=== PATIENT | female | born 1955 | race African-American/Black ===

== ENCOUNTER 2016-11-16 05:54 | Emergency (ER) | payer OTHER ==
[2016-11-16] MEDS ORDERED: MECLIZINE 12.5 MG TABLET PO STA (06:43)
[2016-11-16] MEDS ORDERED: MECLIZINE 12.5 MG TABLET PO ONE (06:51)
--- NOTE | 2016-11-16 08:03 | ED Physician Documentation ---
History of Present Illness - Stated complaint Stated Complaint: DIZZINESS - Chief complaint Chief Complaint: General - History obtained from History obtained from: Patient, Family - History of Present Illness Timing: Yesterday - Additonal information Additional information: 60 y/o female visiting from [place] arrived 4 days ago and yesterday she developed acute dizziness in the morning and this was worse again last night. She has some improvement this morning with the use of antivert given in the ED. She has had this previously about a year ago and medication helped then she had no hearing loss and she has had brief episodes since then and she had some improvement in this with maneuvers done in the ENT office. She has not had vomiting or propelling vertigo or hearing loss with this episode. She did have some nasal congestion and took some kajal and sudafed for this and this seems better. Review of Systems Constitutional: denies: Fever Eyes: denies: Decreased vision Ears: denies: Ear pain Nose: reports: Congestion. 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 - Present Medications Home Medications: Ambulatory Orders Medication Instructions Recorded Confirmed DULoxetine [Cymbalta] 20 mg PO TID 11/16/16 11/16/16 Estradiol [Estradiol Transdermal 1 pt 11/16/16 Patch] Hydroxychloroquine [Plaquenil] 200 mg PO DAILY 11/16/16 11/16/16 Meclizine HCl 25 mg PO Q6HR PRN #20 tab.chew 11/16/16 Omeprazole [PriLOSEC] 20 mg PO DAILY 11/16/16 11/16/16 Prednisone 2.5 mg PO BID 11/16/16 11/16/16 Tramadol HCl/Acetaminophen 1 tab PO DAILY PRN 11/16/16 11/16/16 [Tramadol-Acetaminophn 37.5-325] - Allergies Allergies/Adverse Reactions: Allergies Allergy/AdvReac Type Severity Reaction Status Date / Time codeine Allergy Hives Verified 11/16/16 06:07 - Social History Does the pt smoke?: No Smoking Status: Never smoker Does the pt drink ETOH?: No Does the pt have substance abuse?: No - Immunizations Immunizations are current?: Yes - POLST Patient has POLST: No PD ED PE NORMAL - Vitals Vital signs reviewed: Yes (hypertensive mild ) - General General: Alert and oriented X 3, No acute distress, Well developed/nourished - HEENT HEENT: Atraumatic, PERRL, EOMI, Ears normal, Moist mucous membranes, Pharynx benign, Dentition benign, Other (minimal nystagmus after the administration of meclizine ) - Neck Neck: Supple, no meningeal sign, No bony TTP - Cardiac Cardiac: RRR, No murmur - Respiratory Respiratory: No respiratory distress, Clear bilaterally - Abdomen Abdomen: Soft, Non tender - Derm Derm: Normal color, Warm and dry, No rash - Extremities Extremities: No deformity, No edema - Neuro Neuro: Alert and oriented X 3, 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 She has a history of some recent head tilting in an art class she is taking and I have included instructions on maneuvers for the otoliths. Departure - Departure Disposition: 01 Home, Self Care Clinical Impression: Labyrinthitis Qualifiers: Laterality: bilateral Qualified Code(s): H83.03 - Labyrinthitis, bilateral Condition: Stable Instructions: ED Labyrinthitis Follow-Up: Your, doctor [Other] Prescriptions: Meclizine HCl 25 mg PO Q6HR PRN #20 tab.chew PRN Reason: Dizziness
[2016-11-16 08:30] VITALS: BP 132/76
== END 2016-11-16 08:31 | disposition home or self-care (01) ==
LOC: ED 05:54
DX: H83.03 Labyrinthitis, bilateral (principal)
CPT/HCPCS: 93005; 99283